=== PATIENT | male | born 1990 | race Caucasian/White ===

== ENCOUNTER 2017-02-22 18:15 | Observation (INO) | payer SELFPAY ==
[~2017-02-22] VITALS: Ht 180.3 cm; Wt 76.3 kg
[~2017-02-22 18:15] MED LIST: CYCL10TA6 PO; METH4PAK4 PO; OXYC1TAB3 PO
[2017-02-22] MEDS ORDERED: SODIUM CHLORIDE 0.9% 1000ML 1,000 ML IV STA ×2 (18:22→19:06)
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
[2017-02-22 18:37] LABS: HEMATOCRIT 44.1 % (42-52); MEAN CELL VOLUME 88.9 fL (80-100); MEAN CORPUSCULAR HEMOGLOBIN 30.6 pg (25-34); MEAN CORPUSCULAR HGB CONC 34.5 g/dl (32-36); MEAN PLATELET VOLUME 10.2 fL (7.4-10.4); PLATELET COUNT 385 K/uL (130-400); RED BLOOD COUNT 4.96 M/uL (4.7-6.1); WHITE BLOOD COUNT 12.23 K/uL (4.8-10.8)
[2017-02-22 18:43] LABS: ISTAT CREATININE 1.3 mg/dl (0.6-1.3); ISTAT HEMOGLOBIN 15.3 g/dl (14.0-18.0); ISTAT IONIZED CALCIUM 1.27 mmol/l (1.12-1.32)
[2017-02-22 18:45] LABS: PARTIAL THROMBOPLASTIN RATIO 1.1; PROTHROMBIN TIME (PATIENT) 10.2 SECONDS (9.0-12.0)
[2017-02-22 18:54] LABS: ALT/SGPT 17 U/L (12-78); AST/SGOT 28 U/L (15-37); BLOOD UREA NITROGEN 17 mg/dl (7-18); BUN/CREATININE RATIO 10.3 (10-20); CALCIUM 9.5 mg/dl (8.5-10.1); CARBON DIOXIDE 11 mmol/L (21-32); CHLORIDE 100 mmol/L (98-107); GLUCOSE 163 mg/dl (70-99); POTASSIUM 4.2 mmol/L (3.5-5.1); SODIUM 140 mmol/L (136-145)
[2017-02-22 18:59] LABS: ALKALINE PHOSPHATASE 109 U/L (45-117)
[2017-02-22 19:01] LABS: ACETAMINOPHEN < 2 ug/ml (10-30)
[2017-02-22 19:02] LABS: BASO % 0.8 %; COMPLETE YES; IG% 0.5 %; LYMPH % 56.3 %; LYMPH ABS # 6.89 K/uL (1.2-3.4); MONO % 12.6 %; NEUT % 27.8 %
[2017-02-22 19:04] LABS: URINE APPEARANCE CLEAR (CLEAR); URINE BILIRUBIN NEG (NEG); URINE COLOR YELLOW; URINE EPITHELIAL CELL AUTO >30 /lpf (0-5); URINE NITRITE NEG (NEG); URINE SPECIFIC GRAVITY 1.022 (1.000-1.030); UROBILINOGEN NEG (NEG); ZZURINE CULT IF INDIC CATH NO
[2017-02-22 19:16] LABS: BENZODIAZEPINE, URINE NEG (NEG); COCAINE,URINE POS (NEG); PHENCYCLIDINE, URINE NEG (NEG)
[2017-02-22 19:18] LABS: MANUAL MICROSCOPIC REQUIRED? NO; REVIEW REQ? NO
--- NOTE | 2017-02-22 19:30 | DIAGNOSTIC IMAGING REPORT ---
CT OF THE HEAD WITHOUT CONTRAST CLINICAL HISTORY: Altered mental status. COMPARISON STUDY: No previous studies for comparison. CT DOSE: 1074.96 mGy.cm TECHNIQUE: Helical axial images of the head were obtained without IV contrast. Automated exposure control was utilized for the study. FINDINGS: No acute intracranial hemorrhage, midline shift or mass effect is present. Brain volume is normal. Ventricular system is normal. Basilar cisterns are patent. There are no extra-axial collections. Shah-white differentiation is maintained. There are no findings to suggest acute dural sinus thrombosis or acute territorial infarct. There are no calvarial fractures. Visualized portions of the sinuses and the mastoid air cells are clear. IMPRESSION: No acute intracranial findings. Electronically signed by: Mayur Rivera M.D. 02/22/2017 7:28 PM Dictated Date/Time: 02/22/2017 7:26 PM
--- NOTE | 2017-02-22 20:05 | DIAGNOSTIC IMAGING REPORT ---
CHEST ONE VIEW PORTABLE CLINICAL HISTORY: Altered mental status. COMPARISON STUDY: Chest radiograph and chest CT November 28, 2013. FINDINGS: There is no pneumothorax or pleural effusion. Cardiac size is normal. Mediastinal contours are normal. There is no evidence of pulmonary edema. IMPRESSION: No acute cardiopulmonary findings. Electronically signed by: Mayur Rivera M.D. 02/22/2017 8:03 PM Dictated Date/Time: 02/22/2017 8:00 PM
[2017-02-22 20:15] LABS: ALLEN TEST POS (POS); ARTERIAL BLD GAS O2 SATURATION 97.5 % (90-95); ARTERIAL BLOOD GAS BASE EXCESS -1.8 mEq/L (-9-1.8); ARTERIAL BLOOD GAS HCO3 26 mmol/L (19-24); ARTERIAL BLOOD GAS PO2 115 mmHg (80-95); ARTERIAL BLOOD GAS pH 7.28 (7.35-7.45); O2 ADMINISTRATION 2L O2
[2017-02-22] MEDS ORDERED: ONDANSETRON INJ 2 MG/ML 2 ML VIAL IV PRN (22:15)
[2017-02-22] MEDS ORDERED: POLYETHYLENE (MIRALAX) 17 GM PACK PO PRN (22:15)
[2017-02-22] MEDS ORDERED: MAGNESIUM HYDROXIDE SUSP 30 ML UDC PO PRN (22:15)
[2017-02-22] MEDS ORDERED: ALUMINUM/MAGNESIUM/SIMETH (MAALOX MAX) 30 ML UDC PO PRN (22:15)
[2017-02-22] MEDS ORDERED: ACETAMINOPHEN 325 MG TAB PO PRN (22:15)
[2017-02-22] MEDS ORDERED: LORAZEPAM INJ 1 MG in SYRINGE 0.5 ML IV PRN (22:30)
[2017-02-22] MEDS ORDERED: LORAZEPAM 2 MG/ML 1 ML VIAL IV PRN (22:30)
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
[2017-02-22 23:35] VITALS: BP 156/90; PULSE 65; TEMP 36.3; O2SAT 97; Ht 180.3 cm; Wt 76.3 kg
[2017-02-22] MEDS ORDERED: IV FLUIDS COMPLETED PRN (23:45)
[2017-02-23] VITALS (8 sets, daily range): BP systolic 114–127; BP diastolic 67–81; PULSE 53–76; TEMP 36.4–36.7; O2SAT 98–100
[2017-02-23] MEDS: SODIUM CHLORIDE 0.9% 1000ML 1,000 ML IV SCH ×4 (00:35→20:00)
[2017-02-23 07:12] LABS: BUN/CREATININE RATIO 12.5 (10-20); CREATININE 1.4 mg/dl (0.60-1.40); MAGNESIUM 3.3 mg/dl (1.8-2.4); POTASSIUM 3.9 mmol/L (3.5-5.1)
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
[2017-02-24] MEDS: SODIUM CHLORIDE 0.9% 1000ML 1,000 ML IV SCH (01:57)
[2017-02-24 03:57] VITALS: BP 137/83; PULSE 56; TEMP 36.9; O2SAT 99
[2017-02-24 06:53] LABS: BASO % 0.5 %; BASO ABS # 0.04 K/uL (0-0.2); COMPLETE YES; EOS % 0.8 %; HEMATOCRIT 37.4 % (42-52); IG% 0.4 %; LYMPH % 18.5 %; LYMPH ABS # 1.37 K/uL (1.2-3.4); MEAN CELL VOLUME 83.7 fL (80-100); MEAN CORPUSCULAR HEMOGLOBIN 29.8 pg (25-34); MEAN CORPUSCULAR HGB CONC 35.6 g/dl (32-36); MEAN PLATELET VOLUME 9.9 fL (7.4-10.4); MONO % 13.8 %; PLATELET COUNT 194 K/uL (130-400); RED BLOOD COUNT 4.47 M/uL (4.7-6.1); WHITE BLOOD COUNT 7.41 K/uL (4.8-10.8)
[2017-02-24 06:59] LABS: BUN/CREATININE RATIO 8.2 (10-20); CALCIUM 7.8 mg/dl (8.5-10.1); CREATININE 1.6 mg/dl (0.60-1.40); MAGNESIUM 2.4 mg/dl (1.8-2.4); POTASSIUM 3.7 mmol/L (3.5-5.1)
[2017-02-24 07:38] VITALS: BP 151/78; PULSE 59; TEMP 36.6; O2SAT 99
[2017-02-24 08:00] VITALS: O2SAT 95
--- NOTE | 2017-02-24 08:32 | Discharge Instructions ---
Discharge Instructions Date of Service Feb 24, 2017. Admission Reason for Admission: Drug Overdose, Multiple Drugs Discharge Discharge Diagnosis / Problem: polysubstance abuse Discharge Goals Goal(s): Decrease discomfort, Improve function, Increase independence, Improve disease control, Improve nutritional status, Learn about illness, Diagnostic testing, Therapeutic intervention, Prevent Disease Progression, Specific goals Activity Recommendations Activity Limitations: resume your previous activity . Instructions / Follow-Up Instructions / Follow-Up you have polysubstance use and over dose you have acute kidney failure, which is a little better today you have mild rhabdomyolysis, - you need to find a primary care physician and follow up with your primary care physician in 3-5 days - you need to have lab tests of BMP, CPK done in 3-5 days, to follow up your kidney function - In the future, take medication as instructed, never overdose or any misuse, or take with alcohol, never use illicit substance, because misuse of medicine or substance may cause organ damage or , call your primary care physician if have questions of medications. - call your primary care physician OR go to local emergency room if has any fever/chill, chest pain, shortness of breathing, nausea/vomiting/abdominal pain , facial droop/slurry speech/local weakness, or if has any questions. - fall precaution - diet as instructed - you should understand that it is important to follow up the above instruction , and "not following the above instruction" may cause delayed or missed care of your medical conditions which may cause permanent organ damage and even . Current Hospital Diet Patient's current hospital diet: Regular Diet Discharge Diet Recommended Diet: Regular Diet Pending Studies Studies pending at discharge: no Medical Emergencies . Who to Call and When: Medical Emergencies: If at any time you feel your situation is an emergency, please call 911 immediately. . Non-Emergent Contact Non-Emergency issues call your: Primary Care Provider . . "Provider Documentation" section prepared by Avtar Moreno. VTE Core Measure Inpt VTE Proph given/why not?: Treatment not indicated, Contraindicated
[2017-02-24 08:37] VITALS: BP 151/78; PULSE 59; TEMP 36.6; O2SAT 99
[2017-02-27 14:32] LABS: COCAINE, URINE 300 NG/ML (CUTOFF=100); COD UR 859 NG/ML (CUTOFF=50); HYDROCOD UR NEGATIVE NG/ML (CUTOFF=50); HYDROMOR UR NEGATIVE NG/ML (CUTOFF=50); MORPHINE UR >20000 NG/ML (CUTOFF=50); NORHYDROCODONE CONF UR NEGATIVE NG/ML (CUTOFF=50); OXYMORPH UR NEGATIVE NG/ML (CUTOFF=50)
--- NOTE | 2017-02-28 12:06 | Discharge Summary ---
Discharge Summary Date of Service Feb 28, 2017. Discharge Summary Admission Date: Feb 22, 2017 at 22:16 Discharge Date: Feb 24, 2017 Discharge Disposition: Home Principal Diagnosis: polysubstance use and over dose Problems/Secondary Diagnoses: acute kidney failure, which is a little better today mild rhabdomyolysis, Procedures: no Consultations: no Medication Reconciliation Medication Profile: No Active Prescriptions or Reported Meds Discharge Exam dloing ok, no c/o, eating, voiding, and bowel movement are good Review of Systems: Constitutional: No chills, No fatigue, No fever, No problem reported, No sweats, No weakness, No weight loss Eyes: No diplopia, No discharge, No eye pain, No problem reported, No redness, No worsening of vision ENT: No dental problems, No hearing loss, No nasal symptoms, No problem reported, No sore throat, No tinnitus, No trouble swallowing, No unusual epistaxis Respiratory: No cough, No dyspnea at rest, No dyspnea on exertion, No hemoptysis, No problem reported, No shortness of breath, No sputum, No wheezing Cardiovascular: No PND, No chest pain, No claudication, No edema, No orthopnea, No palpitations, No problem reported Abdomen: No GI bleeding, No constipation, No diarrhea, No nausea, No pain, No problem reported, No vomiting Musculoskeletal: No calf pain, No joint pain, No muscle pain, No problem reported, No swelling Genitourinary - Male: No dysuria, No hematuria, No impotence, No lesions, No penile discharge, No problem reported, No urinary frequency, No urinary hesitancy, No urinary incontinence, No urinary retention, No urinary urgency Neurologic: No balance problems, No memory loss, No numbness/tingling, No paralysis, No problem reported, No vertigo, No weakness Psychiatric: No anhedonism, No anxiety, No depression symptoms, No insomnia , No problem reported, No substance abuse Endocrine: No excessive thirst, No excessive urination, No fatigue, No problem reported Hematologic / Lymphatic: No abnormal bleeding/bruising, No clotting problems , No night sweats, No problem reported, No swollen lymph nodes Integumentary: No bleeding, No color change, No itch, No new/changing skin lesions, No problem reported, No rash Physical Exam: General Appearance: WD/WN, no apparent distress Eyes: normal inspection, PERRL, EOMI ENT: normal ENT inspection, hearing grossly normal Neck: supple, no adenopathy, thyroid normal Respiratory/Chest: chest non-tender, lungs clear, normal breath sounds Cardiovascular: regular rate, rhythm, no edema, no gallop, no JVD, no murmur Abdomen / GI: normal bowel sounds, non tender, soft, no organomegaly, no pulsatile mass Extremities: normal inspection, no calf tenderness, normal capillary refill , no pedal edema, normal range of motion 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 was exhibiting strange behavior and resisted arrest. He was sprayed with pepper spray and brought into the ER as he became progressively lethargic following arrest. Initial labs revealed mild rhabdo, ARF and mild respiratory acidosis. His UDS is positive for Cocaine, Opiates, MDMA, meth, THC. He is very lethargic but can nod his head to questioning and occasionally mouth a few words. He appears able to comprehend questions. Vital signs and 02 sat have been stable and WNL. Multiple needles were found on his person following arrest. Per the local police he is slated for incarceration upon discharge. Drug overdose - polysubstance abuse: stable, resolved, no sign of arrhythmia Mild rhabdo - can be due to dehydration, cocaine and meth use , improving, resolving have given aggressive hydration since admission ARF - likely prerenal - IVF and repeat BMP., cr still elevated, I told him should see a doctor in 3-5 days Mild resp acidosis - suspected due to hypoventilation. Stable resolved Full code has reported to police before discharging Instructions / Follow-Up you have polysubstance use and over dose you have acute kidney failure, which is a little better today you have mild rhabdomyolysis, - you need to find a primary care physician and follow up with your primary care physician in 3-5 days - you need to have lab tests of BMP, CPK done in 3-5 days, to follow up your kidney function - In the future, take medication as instructed, never overdose or any misuse, or take with alcohol, never use illicit substance, because misuse of medicine or substance may cause organ damage or , call your primary care physician if have questions of medications. - call your primary care physician OR go to local emergency room if has any fever/chill, chest pain, shortness of breathing, nausea/vomiting/abdominal pain , facial droop/slurry speech/local weakness, or if has any questions. - fall precaution - diet as instructed - you should understand that it is important to follow up the above instruction , and "not following the above instruction" may cause delayed or missed care of your medical conditions which may cause permanent organ damage and even . Total Time Spent: Less than 30 minutes This includes examination of the patient, discharge planning, medication reconciliation, and communication with other providers. Discharge Instructions Please refer to the electronic Patient Visit Report (Discharge Instructions) for additional information.
== END 2017-02-24 08:53 ==
LOC: ENRESERVTM → ENRESERVDT → EDBD 18:15 → C.EDB 18:20 → C.2T 22:16
PROVIDERS: ADMIT Internal Medicine; ATTEND Hospitalist
DX: T40.1X1A Poisoning by heroin, accidental (unintentional), initial encounter (principal); T50.901A Poisoning by unspecified drugs, medicaments and biological substances, accidental (unintentional), initial encounter; X58.XXXA Exposure to other specified factors, initial encounter; R06.89 Other abnormalities of breathing; E86.0 Dehydration; M62.82 Rhabdomyolysis; N17.9 Acute kidney failure, unspecified; E87.2 Acidosis; F17.200 Nicotine dependence, unspecified, uncomplicated

== ENCOUNTER 2017-03-02 15:08 | Emergency (ER) | payer OTHER ==
[~2017-03-02] VITALS: Ht 180.3 cm; Wt 80.4 kg
[2017-03-02 15:18] VITALS: TEMP 37.1; Ht 180.3 cm; Wt 80.4 kg
[2017-03-02] MEDS ORDERED: SODIUM CHLORIDE 0.9% 1000ML 1,000 ML IV STA (15:28)
--- NOTE | 2017-03-02 15:44 | EMERGENCY ROOM VISIT NOTE ---
History Report prepared by Yanelis: Elias Shultz Under the Supervision of: Dr. Mir Longo D.O. First contact with patient: 15:27 Chief Complaint: ABNORMAL LABS Stated Complaint: LAB WORK History of Present Illness The patient is a 26 year old male who presents to the Emergency Room with complaints of acute creatinine phosphokinase elevation. The patient had his blood drawn yesterday. His CK was 3864. The last time he was in the ED his CK was approximately 600. The patient complains of bilateral arm pain and increased fatigue. The patient denies any recent falls. He was in the ED recently after [place] found overdosed [place] a park. He states that he was under the influence of heroin, cocaine, and methamphetamine. He frequently uses these drugs. He denies any major medical problems. He notes that he has not been taking his psych medications. Source of History: patient Onset: yesterday Position: other (global) Symptom Intensity: 3864 Quality: other (elevated CK) Timing: other (acute) Associated Symptoms: + fatigue Review of Systems See HPI for pertinent positives & negatives. A total of 10 systems reviewed and were otherwise negative. Past Medical & Surgical Medical Problems: (1) Back pain (2) Drug overdose, multiple drugs (3) Headache (4) Occipital scalp laceration (5) Removal of ramos (6) Rib contusion Family History Patient reports no known family medical history. Social History Smoking Status: Current Every Day Smoker Alcohol Use: none Housing Status: unknown Occupation Status: unemployed Current/Historical Medications Scheduled Dicyclomine Hcl (Bentyl), 20 MG PO TID Folic Acid (Folvite), 1 MG PO DAILY Hydroxyzine Pamoate (Vistaril), 1 CAP PO BID Multivitamin (Multivitamin), 1 TAB PO DAILY Thiamine Hcl (Vitamin B-1), 100 MG PO DAILY Scheduled PRN Bismuth Subsalicylate (Pepto-Bismol Susp), 30 ML PO BID PRN for GI Upset Miscellaneous Medications Chlordiazepoxide (Librium), 25 MG PO Allergies Coded Allergies: No Known Allergies (Unverified , 03/02/17) Physical Exam Vital Signs Date Time Temp Pulse Resp B/P Pulse Ox O2 Delivery O2 Flow Rate FiO2 03/02/17 17:18 77 18 128/84 100 Room Air 03/02/17 15:58 74 03/02/17 15:18 37.1 78 16 129/84 97 Room Air Physical Exam GENERAL: Patient is awake, alert, and in no acute distress. Patient is resting comfortably and showing no signs of anxiety EYES: The conjunctivae are clear. The pupils are round and reactive. EARS, NOSE, MOUTH AND THROAT: The nose is without any evidence of any deformity. Mucous membranes are moist tongue is midline NECK: The neck is nontender and supple. RESPIRATORY: Normal respiratory effort is noted there is no evidence of wheezing rhonchi or rales CARDIOVASCULAR: Regular rate and rhythm noted there no murmurs rubs or gallops normal S1 normal S2 GASTROINTESTINAL: The abdomen is soft. Bowel sounds are present in all quadrants. Abdomen is nontender MUSCULOSKELETAL/EXTREMITIES: There is no evidence of gross deformity full range of motion is noted in the hips and shoulders SKIN: There is no obvious evidence of any rash. There are no petechiae, pallor or cyanosis noted. NEUROLOGIC: Patient is awake alert and oriented x3 strength is symmetric patellar reflexes are 2+ bilaterally Medical Decision & Procedures ER Provider Diagnostic Interpretation: X-ray results as stated below per interpretation by me and the radiologist. CHEST ONE VIEW PORTABLE CLINICAL HISTORY: ABDOMINAL PAIN/GI pain COMPARISON STUDY: 02/22/2017 FINDINGS: The bones soft tissues and hemidiaphragms are normal. The cardiomediastinal silhouette is normal. The lungs are clear. The pulmonary vasculature is normal. IMPRESSION: Negative chest. Electronically signed by: Kyle Murillo M.D. 03/02/2017 4:23 PM Dictated Date/Time: 03/02/2017 4:22 PM Laboratory Results 03/02/17 15:55 Red Blood Count 4.54, Mean Corpuscular Volume 89.2, Mean Corpuscular Hemoglobin 29.5, Mean Corpuscular Hemoglobin Concent 33.1, Mean Platelet Volume 10.7, Neutrophils (%) (Auto) 51.9, Lymphocytes (%) (Auto) 31.7, Monocytes (%) (Auto) 12.3, Eosinophils (%) (Auto) 2.7, Basophils (%) (Auto) 1.2, Neutrophils # (Auto ) 2.71, Lymphocytes # (Auto) 1.65, Monocytes # (Auto) 0.64, Eosinophils # (Auto ) 0.14, Basophils # (Auto) 0.06 03/02/17 15:55 Test 4/21/17 15:55 03/02/17 16:38 White Blood Count 5.21 K/uL (4.8-10.8) Red Blood Count 4.54 M/uL (4.7-6.1) Hemoglobin 13.4 g/dL (14.0-18.0) Hematocrit 40.5 % (42-52) Mean Corpuscular Volume 89.2 fL (80-100) Mean Corpuscular Hemoglobin 29.5 pg (25-34) Mean Corpuscular Hemoglobin Concent 33.1 g/dl (32-36) Platelet Count 206 K/uL (130-400) Mean Platelet Volume 10.7 fL (7.4-10.4) Neutrophils (%) (Auto) 51.9 % Lymphocytes (%) (Auto) 31.7 % Monocytes (%) (Auto) 12.3 % Eosinophils (%) (Auto) 2.7 % Basophils (%) (Auto) 1.2 % Neutrophils # (Auto) 2.71 K/uL (1.4-6.5) Lymphocytes # (Auto) 1.65 K/uL (1.2-3.4) Monocytes # (Auto) 0.64 K/uL (0.11-0.59) Eosinophils # (Auto) 0.14 K/uL (0-0.5) Basophils # (Auto) 0.06 K/uL (0-0.2) RDW Standard Deviation 43.2 fL (36.4-46.3) RDW Coefficient of Variation 13.3 % (11.5-14.5) Immature Granulocyte % (Auto) 0.2 % Immature Granulocyte # (Auto) 0.01 K/uL (0.00-0.02) Prothrombin Time 10.5 SECONDS (9.0-12.0) Prothromb Time International Ratio 1.0 (0.9-1.1) Activated Partial Thromboplast Time 26.8 SECONDS (21.0-31.0) Partial Thromboplastin Ratio 1.0 Anion Gap 5.0 mmol/L (3-11) Est Creatinine Clear Calc Drug Dose 126.5 ml/min Estimated GFR () 128.4 Estimated GFR (Non- 110.8 BUN/Creatinine Ratio 15.6 (10-20) Calcium Level 9.1 mg/dl (8.5-10.1) Total Bilirubin 0.3 mg/dl (0.2-1) Direct Bilirubin < 0.1 mg/dl (0-0.2) Aspartate Amino Transf (AST/SGOT) 89 U/L (15-37) Alanine Aminotransferase (ALT/SGPT) 37 U/L (12-78) Alkaline Phosphatase 69 U/L (45-117) Total Creatine Kinase 2767 U/L (39-308) Creatine Kinase MB 1.7 ng/ml (0.5-3.6) Creatine Kinase MB Ratio 0.1 (0-3.0) Troponin I < 0.015 ng/ml (0-0.045) Total Protein 7.1 gm/dl (6.4-8.2) Albumin 3.9 gm/dl (3.4-5.0) Lipase 235 U/L (73-393) Urine Color YELLOW Urine Appearance CLEAR (CLEAR) Urine pH 8.0 (4.5-7.5) Urine Specific [place] 1.010 (1.000-1.030) Urine Protein NEG (NEG) Urine Glucose (UA) NEG (NEG) Urine Ketones NEG (NEG) Urine Occult Blood NEG (NEG) Urine Nitrite NEG (NEG) Urine Bilirubin NEG (NEG) Urine Urobilinogen NEG (NEG) Urine Leukocyte Esterase NEG (NEG) Laboratory results per my review. Medications Administered Medications (Trade) Dose Ordered Sig/Anil Route Start Time Stop Time Status Last Admin Dose Admin Sodium Chloride (Nss 1000ml) 1,000 ml @ 999 mls/hr Q1H1M STAT IV 03/02/17 15:28 03/02/17 16:28 DC 03/02/17 15:28 999 MLS/HR ECG Indication: weakness Rate (beats per minute): 64 Rhythm: normal sinus Findings: no acute ischemic change, no ectopy Comparison ECG Date: 22 February 2017 Change: no significant change ED Course 1527: The patient was evaluated in room B10. A complete history and physical examination were performed. 1528: NSS 1000 ml @ 999 mls/hr. 1715: Discussed the findings with the [facility]'s PA. The patient will be discharged back to [facility]. 1716: Updated the patient. He is ready for discharge. Medical Decision Prior records/ancillary studies reviewed and summarized above. Nursing notes reviewed. The patient's history was concerning for weakness. Differential diagnosis: Etiologies such as metabolic, infection, hypo/hyperglycemia, electrolyte abnormalities, cardiac sources, intracerebral event, toxicologic, neurologic, as well as others were entertained. The patient is a 26-year-old male who presented to emergency department for evaluation of elevated CPK. The patient was treated with IV fluids. His CPK was rechecked and appears to be coming down from yesterday's measurement. I discussed the patient's condition with the medical staff at the snf. They were encouraged to recheck the CPK and 48 hours to ensure was coming down but send the patient back to the emergency department immediately if symptoms change worsen or the need arises. Impression Primary Impression: Rhabdomyolysis Additional Impression: Polysubstance abuse Scribe Attestation The scribe's documentation has been prepared under my direction and personally reviewed by me in its entirety. I confirm that the note above accurately reflects all work, treatment, procedures, and medical decision making performed by me. Departure Information Dispostion Home / Self-Care Referrals No Doctor, Assigned (PCP) Forms HOME CARE DOCUMENTATION FORM, IMPORTANT VISIT INFORMATION, WORK / SCHOOL INSTRUCTIONS Patient Instructions My [facility], Rhabdomyolysis Additional Instructions Continue all medications as prescribed. Continue to encourage him to drink plenty of clear liquids. I would recommend a repeat CPK level in 48 hours to ensure that it has continued to drop. Return to the emergency department if symptoms worsen or if need arises. Problem Qualifiers Primary Impression: Rhabdomyolysis Rhabdomyolysis type: non-traumatic Qualified Codes: M62.82 - Rhabdomyolysis
[2017-03-02 16:05] LABS: BASO % 1.2 %; BASO ABS # 0.06 K/uL (0-0.2); COMPLETE YES; EOS % 2.7 %; HEMATOCRIT 40.5 % (42-52); IG% 0.2 %; LYMPH % 31.7 %; LYMPH ABS # 1.65 K/uL (1.2-3.4); MEAN CELL VOLUME 89.2 fL (80-100); MEAN CORPUSCULAR HEMOGLOBIN 29.5 pg (25-34); MEAN CORPUSCULAR HGB CONC 33.1 g/dl (32-36); MEAN PLATELET VOLUME 10.7 fL (7.4-10.4); MONO % 12.3 %; NEUT % 51.9 %; PLATELET COUNT 206 K/uL (130-400); RED BLOOD COUNT 4.54 M/uL (4.7-6.1); WHITE BLOOD COUNT 5.21 K/uL (4.8-10.8)
[2017-03-02 16:14] LABS: PROTHROMBIN TIME (PATIENT) 10.5 SECONDS (9.0-12.0)
[2017-03-02] MEDS ORDERED: MULT-506 PO (16:19)
[2017-03-02] MEDS ORDERED: DICY20TA35 PO (16:19)
[2017-03-02] MEDS ORDERED: PPTBS PO (16:19)
[2017-03-02] MEDS ORDERED: THIA100T11 PO (16:19)
[2017-03-02] MEDS ORDERED: HYDR25CA PO (16:19)
[2017-03-02] MEDS ORDERED: CHLO25CA10 PO (16:19)
[2017-03-02] MEDS ORDERED: FOLI1TAB7 PO (16:19)
[2017-03-02 16:22] LABS: ALT/SGPT 37 U/L (12-78); AST/SGOT 89 U/L (15-37); BLOOD UREA NITROGEN 15 mg/dl (7-18); BUN/CREATININE RATIO 15.6 (10-20); CALCIUM 9.1 mg/dl (8.5-10.1); CARBON DIOXIDE 34 mmol/L (21-32); CHLORIDE 106 mmol/L (98-107); CREATININE 0.95 mg/dl (0.60-1.40); GLUCOSE 95 mg/dl (70-99); POTASSIUM 4.4 mmol/L (3.5-5.1); SODIUM 145 mmol/L (136-145)
--- NOTE | 2017-03-02 16:25 | DIAGNOSTIC IMAGING REPORT ---
CHEST ONE VIEW PORTABLE CLINICAL HISTORY: ABDOMINAL PAIN/GI pain COMPARISON STUDY: 02/22/2017 FINDINGS: The bones soft tissues and hemidiaphragms are normal. The cardiomediastinal silhouette is normal. The lungs are clear. The pulmonary vasculature is normal. IMPRESSION: Negative chest. Electronically signed by: Kyle Murillo M.D. 03/02/2017 4:23 PM Dictated Date/Time: 03/02/2017 4:22 PM
[2017-03-02 16:40] LABS: ALKALINE PHOSPHATASE 69 U/L (45-117); CKMB/CK RATIO 0.1 (0-3.0)
[2017-03-02 16:48] LABS: MANUAL MICROSCOPIC REQUIRED? NO; REVIEW REQ? NO; URINE APPEARANCE CLEAR (CLEAR); URINE BILIRUBIN NEG (NEG); URINE COLOR YELLOW; URINE NITRITE NEG (NEG); UROBILINOGEN NEG (NEG)
[2017-03-02 17:18] VITALS: BP 128/84; PULSE 77; O2SAT 100
== END 2017-03-02 17:24 | disposition home or self-care (01) ==
LOC: C.EDB 15:10
DX: M62.82 Rhabdomyolysis (principal); F19.10 Other psychoactive substance abuse, uncomplicated; F17.200 Nicotine dependence, unspecified, uncomplicated; Z87.828 Personal history of other (healed) physical injury and trauma; Z79.899 Other long term (current) drug therapy